=== PATIENT | male | born 1970 | race African-American/Black ===

== ENCOUNTER 2016-11-05 00:07 | Emergency (ER) | payer BC ==
[~2016-11-05] VITALS: Ht 182.9 cm; Wt 108.4 kg
[2016-11-05] MEDS ORDERED: ZITHROMAX Z-PA250 MG PO (01:02)
[2016-11-05] MEDS ORDERED: HYCODAN SYRUP480 ML PO (01:02)
[2016-11-05] MEDS ORDERED: MEDROL DOSEPAK4 MG PO (01:02)
[2016-11-05 01:17] VITALS: BP 145/78
== END 2016-11-05 01:19 | disposition home or self-care (01) ==
LOC: EME 00:07 → RME 00:07
DX: H66.91 Otitis media, unspecified, right ear (principal); J40 Bronchitis, not specified as acute or chronic
CPT/HCPCS: 99281; 99284; J7512